=== PATIENT | female | born 1975 | race Hispanic/Latino ===

== ENCOUNTER 2024-09-11 19:01 | Emergency (ER) | payer OTHER ==
[~2024-09-11] VITALS: Ht 149.9 cm; Wt 43.1 kg
[~2024-09-11 19:01] MED LIST: TYLENOL EXTRA500 MG PO
[2024-09-11 19:05] VITALS: PULSE 79; RESP 16; TEMP 98
[2024-09-11 19:25] LABS: BASOPHILS % 0.7 % (0.0-1.0); EOSINOPHILS # (AUTO) 0.2 (0.0-0.4); HEMATOCRIT 41.8 % (34.2-44.1); HEMOGLOBIN 13.6 g/dL (12.0-16.0); LYMPHOCYTES # (AUTO) 1.3 (1.0-3.2); LYMPHOCYTES % 21.8 % (18.0-39.1); MEAN CORPUSCULAR HEMOGLOBIN 32.2 pg (28-32); MEAN CORPUSCULAR HGB CONC 32.5 g/dL (31-35); MEAN CORPUSCULAR VOLUME 99.1 fL (81-99); MONOCYTES # (AUTO) 0.4 (0.2-0.8); MONOCYTES % 5.9 % (4.4-11.3); NEUTROPHILS # (AUTO) 4.2 (2.1-6.9); NEUTROPHILS % 68.4 % (38.7-80.0); PLATELET COUNT 218 x10e3/uL (140-360); RED BLOOD COUNT 4.22 x10e6/uL (3.6-5.1); RED CELL DISTRIBUTION WIDTH 13.3 % (11.7-14.4); WHITE BLOOD COUNT 6.06 x10e3/uL (4.8-10.8)
[2024-09-11] MEDS: SODIUM CHLORIDE 0.9% 1000ML 1,000 ML IV ONE (19:32)
[2024-09-11] MEDS: ONDANSETRON HCL INJ 2MG/ML 2ML 2 MG/ML VIAL IV STA (19:32)
[2024-09-11 19:33] LABS: BILIRUBIN,URINE NEGATIVE (NEGATIVE); CLARITY,URINE SL CLOUDY (CLEAR); COLOR,URINE YELLOW (YELLOW); GLUCOSE, URINE NEGATIVE (NEGATIVE); KETONES,URINE NEGATIVE (NEGATIVE); LEUKOCYTE ESTERASE ,URINE NEGATIVE (NEGATIVE); NITRITE,URINE NEGATIVE (NEGATIVE); PH,URINE 5.5 (5 - 7); PROTEIN,URINE DIPSTICK NEGATIVE (NEGATIVE); URINE UROBILINOGEN 0.2 mg/dL (0.2 - 1)
[2024-09-11 19:42] LABS: ALBUMIN 4.2 g/dL (3.5-5.0); ALBUMIN/GLOBULIN RATIO 1.5 (0.8-2.0); ANION GAP 11.3 mmol/L (8-16); BILIRUBIN,TOTAL 0.3 mg/dL (0.2-1.2); CALCIUM 8.8 mg/dL (8.4-10.2); CREATININE, SERUM 0.94 mg/dL (0.57-1.11)
[2024-09-11 19:43] LABS: POTASSIUM 3.3 mmol/L (3.5-5.1)
[2024-09-11 19:45] LABS: BACTERIA,URINE MODERATE /HPF; EPITHELIAL CELLS,URINE FEW /LPF; TRANSITIONAL EPI CELLS,URINE FEW
[2024-09-11] MEDS ORDERED: IOPAMIDOL 370 MG/ML 100 ML INFUS..BTL INJ ONE (19:53)
[2024-09-11] MEDS ORDERED: POTASSIUM CHLORIDE 20 MEQ TAB CR PO STA (21:05)
[2024-09-11] MEDS ORDERED: ONDANSETRON ODT4 MG PO (21:49)
[2024-09-11 22:00] VITALS: BP 131/80; O2SAT 100
== END 2024-09-11 22:01 | disposition home or self-care (01) ==
LOC: ER 19:05
DX: R19.7 Diarrhea, unspecified (principal); D64.9 Anemia, unspecified; K21.9 Gastro-esophageal reflux disease without esophagitis; Z86.73 Personal history of transient ischemic attack (TIA), and cerebral infarction without residual deficits; Z87.19 Personal history of other diseases of the digestive system
CPT/HCPCS: 36415; 74177; 80053; 81001; 83690; 85025; 99284; J2405; J7030; Q9967

== ENCOUNTER 2025-02-06 18:11 | Emergency (ER) | payer OTHER ==
[~2025-02-06] VITALS: Ht 149.9 cm; Wt 46.7 kg
[~2025-02-06 18:11] MED LIST changes: +ONDANSETRON ODT4 MG PO
[2025-02-06 18:42] LABS: BASOPHILS % 0.4 % (0.0-1.0); EOSINOPHILS # (AUTO) 0.1 (0.0-0.4); EOSINOPHILS % 1.7 % (0.0-6.0); HEMATOCRIT 39.9 % (34.2-44.1); HEMOGLOBIN 13.6 g/dL (12.0-16.0); LYMPHOCYTES # (AUTO) 1.4 (1.0-3.2); LYMPHOCYTES % 29.5 % (18.0-39.1); MEAN CORPUSCULAR HEMOGLOBIN 31.8 pg (28-32); MEAN CORPUSCULAR HGB CONC 34.1 g/dL (31-35); MEAN CORPUSCULAR VOLUME 93.2 fL (81-99); MONOCYTES # (AUTO) 0.4 (0.2-0.8); MONOCYTES % 7.9 % (4.4-11.3); NEUTROPHILS # (AUTO) 2.8 (2.1-6.9); NEUTROPHILS % 60.3 % (38.7-80.0); PLATELET COUNT 227 x10e3/uL (140-360); RED BLOOD COUNT 4.28 x10e6/uL (3.6-5.1); RED CELL DISTRIBUTION WIDTH 12.9 % (11.7-14.4); WHITE BLOOD COUNT 4.58 x10e3/uL (4.8-10.8)
[2025-02-06] MEDS: ONDANSETRON HCL INJ 2MG/ML 2ML 2 MG/ML VIAL IV STA (18:45)
[2025-02-06] MEDS: SODIUM CHLORIDE 0.9% 1000ML 1,000 ML IV ONE (18:45)
[2025-02-06 19:04] LABS: ALBUMIN 4.3 g/dL (3.5-5.0); ALBUMIN/GLOBULIN RATIO 1.7 (0.8-2.0); ANION GAP 13.5 mmol/L (8-16); BILIRUBIN,TOTAL 0.4 mg/dL (0.2-1.2); CALCIUM 8.7 mg/dL (8.4-10.2); CREATININE, SERUM 0.87 mg/dL (0.57-1.11); POTASSIUM 3.5 mmol/L (3.5-5.1); TOTAL PROTEIN 6.9 g/dL (6.5-8.1)
[2025-02-06 19:12] VITALS: PULSE 73; RESP 16; TEMP 98.3; O2SAT 100
[2025-02-06] MEDS ORDERED: ONDANSETRON ODT4 MG SL (19:32)
== END 2025-02-06 19:55 | disposition home or self-care (01) ==
LOC: ER 18:33
DX: R19.7 Diarrhea, unspecified (principal); D64.9 Anemia, unspecified; K21.9 Gastro-esophageal reflux disease without esophagitis; Z86.73 Personal history of transient ischemic attack (TIA), and cerebral infarction without residual deficits; Z87.19 Personal history of other diseases of the digestive system
CPT/HCPCS: 36415; 80053; 83735; 85025; 99284; J2405; J7030

== ENCOUNTER 2025-07-14 06:49 | Emergency (ER) | payer OTHER ==
[~2025-07-14] VITALS: Ht 149.9 cm; Wt 45.4 kg
[~2025-07-14 06:49] MED LIST changes: +ONDANSETRON ODT4 MG SL
[2025-07-14 06:52] VITALS: TEMP 98.1
[2025-07-14 07:16] LABS: BASOPHILS % 0.5 % (0.0-1.0); EOSINOPHILS % 3.0 % (0.0-6.0); LYMPHOCYTES % 39.5 % (18.0-39.1); MONOCYTES % 6.6 % (4.4-11.3); NEUTROPHILS % 50.2 % (38.7-80.0); RED CELL DISTRIBUTION WIDTH 13.1 % (11.7-14.4)
[2025-07-14 07:38] LABS: EST GLOMERULAR FILTRATION RATE 97.0 ML/MIN (>=60)
[2025-07-14] MEDS: ONDANSETRON HCL INJ 2MG/ML 2ML 2 MG/ML VIAL IV PRN (07:47)
[2025-07-14] MEDS: SODIUM CHLORIDE 0.9% 1000ML 1,000 ML IV STA (07:47)
[2025-07-14] MEDS: DICYCLOMINE HCL 20 MG/2 ML VIAL IM ONE (07:47)
[2025-07-14] MEDS ORDERED: IOPAMIDOL 370 MG/ML 100 ML INFUS..BTL INJ ONE (07:54)
[2025-07-14] MEDS: FENTANYL CITRATE/PF 100MCG/2 ML INJ IV PRN (08:33)
[2025-07-14 09:00] VITALS: BP 149/90; PULSE 88; RESP 18
[2025-07-14 09:01] LABS: LEUKOCYTE ESTERASE ,URINE NEGATIVE (NEGATIVE); PROTEIN,URINE DIPSTICK NEGATIVE (NEGATIVE); URINE UROBILINOGEN 0.2 mg/dL (0.2 - 1)
[2025-07-14 09:16] LABS: EPITHELIAL CELLS,URINE RARE /LPF; WBC,URINE (MAN) 0-5 /HPF (0-5)
[2025-07-14] MEDS ORDERED: DICYCLOMINE HCL20 MG PO (09:25)
[2025-07-14] MEDS ORDERED: OMEPRAZOLE40 MG PO (09:25)
[2025-07-14 09:49] VITALS: PULSE 76; RESP 18; O2SAT 100
== END 2025-07-14 09:58 | disposition home or self-care (01) ==
LOC: ER 06:52
DX: R10.11 Right upper quadrant pain (principal); D64.9 Anemia, unspecified; K21.9 Gastro-esophageal reflux disease without esophagitis; Z86.73 Personal history of transient ischemic attack (TIA), and cerebral infarction without residual deficits; Z87.19 Personal history of other diseases of the digestive system
CPT/HCPCS: 36415; 74177; 80053; 81001; 83690; 85025; 99284; J0500; J2405; J3010; J7030; Q9967